=== PATIENT | male | born 1965 | race African-American/Black ===

== ENCOUNTER → 2024-09-19 | Outpatient (CLI) | payer OTHER ==
--- NOTE | 2024-09-19 12:37 | XR ---
EXAMINATION TYPE: XR femur LT DATE OF EXAM: 09/19/2024 12:16 PM COMPARISON: None CLINICAL INDICATION: Male, 59 years old with history of M25.562 PN LT FEMUR M79.652 PAIN LT KNEE; [facility] , pain TECHNIQUE: XR femur LT examined in Frontal and lateral projections. FINDINGS: No evidence of acute osseous pathology, joint dislocation, or soft tissue swelling. Large osteophyte formations of the superior acetabulum. Moderate to severe joint space narrowing. Mild dege nerative changes of the left hip with osteophyte information and joint space narrowing. IMPRESSION: 1. No acute osseous pathology. 2. Severe degeneration changes of the hip. [facility], , 09/19/2024 12:35 PM
--- NOTE | 2024-09-19 12:38 | XR ---
EXAMINATION TYPE: XR knee complete LT DATE OF EXAM: 09/19/2024 12:17 PM COMPARISON: Same day CLINICAL INDICATION: Male, 59 years old with history of M25.562 PN LT FEMUR M79.652 PAIN LT KNEE; [facility] , pain TECHNIQUE: XR knee complete LT 3 views submitted. FINDINGS: No evidence of any acute osseous pathology, soft tissue swelling, or joint effusion is no pantera. Tricompartmental osteophyte formation involving the femoral condyles, tibial plateau and patella . Moderate to severe joint space narrowing. IMPRESSION: 1. No acute osseous pathology. 2. Moderate to severe tricompartmental osteoarthritic changes. [facility], , 09/19/2024 12:35 PM
== END | disposition home or self-care (01) ==
LOC: RADXRMAIN 11:48
PROVIDERS: ATTEND Emergency Medicine
DX: M16.12 Unilateral primary osteoarthritis, left hip (principal); M17.12 Unilateral primary osteoarthritis, left knee